=== PATIENT | female | born 1960 | race Caucasian/White ===

== ENCOUNTER 2017-09-02 00:20 | Emergency (ER) | payer SELFPAY ==
[2017-09-02 00:58] LABS: #Basophils 0.2 thou/uL (0.0-0.2); #Eosinphils 0.8 thou/uL (0.0-0.7); #Monocytes 0.6 thou/uL (0.11-0.59); #Neutrophils 5.5 thou/uL (1.40-6.50); %Basophils 2.6 % (0.0-1.0); %Eosinophils 8.6 % (0.0-10.0); %Lymphocytes 21.7 % (21.0-51.0); %Monocytes 6.1 % (0.0-10.0); Hemoglobin 13.9 g/dL (12.0-16.0); Mean Corpuscular Hemoglobin 25.7 pg (27.0-31.0); Mean Corpuscular Volume 80.6 fl (81.0-99.0); Mean Platelet Volume 6.2 fL (7.4-10.4); Platelet Count 269 thou/uL (130-400); RBC Distribution Width 12.8 % (11.5-14.5); Red Blood Cell (RBC) Count 5.41 mill/uL (4.20-5.40); White Blood Cell (WBC) Count 9.1 thou/uL (4.8-10.8)
[2017-09-02 01:09] LABS: ALT (SGPT) 21 U/L (8-55); AST (SGOT) 24 U/L (5-34); Alkaline Phosphatase 95 U/L (40-150); Anion Gap 13 mmol/L (10-20); Bilirubin, Total 0.3 mg/dL (0.2-1.2); Calc. Creatinine Clearance 0 mL/min (70-130); Calcium 9.5 mg/dL (7.8-10.44); Carbon Dioxide 25 mmol/L (22-29); Chloride 106 mmol/L (98-107); Estimated GFR-MDRD 65; Globulin 3.5 g/dL (2.4-3.5); Glucose 115 mg/dL (70-105); Potassium 4.4 mmol/L (3.5-5.1); Protein, Total 7.5 g/dL (6.0-8.3); Sodium 140 mmol/L (136-145)
[2017-09-02 01:19] LABS: BUN (Urea Nitrogen) 15 mg/dL (9.8-20.1)
--- NOTE | 2017-09-02 08:04 | CT ---
PRELIMINARY REPORT/[facility]/EMERGENCY AFTER HOURS PROCEDURE: EXAM: CT Chest With Intravenous Contrast CLINICAL HISTORY: 56 years old, female; Pain and signs and symptoms; Mass, lump, or swelling; Luq; Abdominal pain; Loca lized; Left upper quadrant (luq); Cough; Symptoms not specified; Chest wall pain; Patient HX: Left lo wer chest/upper abd palpable mass for a month. Hs of hyst TECHNIQUE: Axial computed tomography images of the chest with intravenous contrast. All CT scans at this facilit y use one or more dose reduction techniques, viz.: automated exposure control; ma/kV adjustment per p atient size (including targeted exams where dose is matched to indication; i.e. head); or iterative reconstruction technique. Coronal reformatted images were created and reviewed. CONTRAST: 90 mL of administered intravenously. COMPARISON: No relevant prior studies available. FINDINGS: Lungs: Unremarkable. No mass. No consolidation. Pleural space: Unremarkable. No pneumothorax. No significant effusion. Heart: Unremarkable. No cardiomegaly. No significant pericardial effusion. Bones/joints: Unremarkable. No acute fracture. No dislocation. Soft tissues: Unremarkable. Vasculature: Unremarkable. No thoracic aortic aneurysm. Lymph nodes: Unremarkable. No enlarged lymph nodes. IMPRESSION: No definite acute process observed EXAM: CT Abdomen and Pelvis With Intravenous Contrast CLINICAL HISTORY: 56 years old, female; Pain and signs and symptoms; Mass, lump, or swelling; Luq; Abdominal pain; Loca lized; Left upper quadrant (luq); Cough; Symptoms not specified; Chest wall pain; Patient HX: Left lo wer chest/upper abd palpable mass for a month. Hs of hyst TECHNIQUE: Axial computed tomography images of the abdomen and pelvis with intravenous contrast. CONTRAST: 90 mL of administered intravenously. COMPARISON: No relevant prior studies available. FINDINGS: ABDOMEN: Liver: Tiny hypodensity in the inferior right lobe No mass. Gallbladder and bile ducts: Unremarkable. No calcified stones. No ductal dilation. Pancreas: Unremarkable. No mass. No ductal dilation. Spleen: Unremarkable. No splenomegaly. Adrenals: Unremarkable. No mass. Kidneys and ureters: Unremarkable. No solid mass. No hydronephrosis. Stomach and bowel: Moderate stool in the colon No obstruction. No mucosal thickening. Appendix: No findings to suggest acute appendicitis. PELVIS: Bladder: Unremarkable. No mass. Reproductive: Unremarkable as visualized. ABDOMEN and PELVIS: Intraperitoneal space: Unremarkable. No free air. No significant fluid collection. Bones/joints: No acute fracture. No dislocation. Soft tissues: Unremarkable. Vasculature: Unremarkable. No abdominal aortic aneurysm. Lymph nodes: Unremarkable. No enlarged lymph nodes. IMPRESSION: No definite mass identified Question constipation Thank you for allowing us to participate in the care of your patient. Dictated and Authenticated by: Naresh Carlton MD 09/02/2017 2:17 AM Central Time ([place] & [place]) FINAL REPORT CT CHEST WITH IV CONTRAST CT ABDOMEN WITH IV CONTRAST CT PELVIS WITH IV CONTRAST: I agree with the preliminary report given by Dr. Naresh Carlton of [facility]. POS: [facility]
[2017-09-02] MEDS ORDERED: Iopamidol 370 76% 100 ML VIAL ONE (09:00)
== END 2017-09-02 02:33 | disposition home or self-care (01) ==
LOC: SCSER 00:20
DX: R19.02 Left upper quadrant abdominal swelling, mass and lump (principal); J45.909 Unspecified asthma, uncomplicated
CPT/HCPCS: 71260; 74177; 80053; 85025

== ENCOUNTER 2018-04-14 17:53 | Emergency (ER) | payer SELFPAY ==
[2018-04-14] MEDS ORDERED: Ketorolac Tromethamine 30 MG/ML VIAL ONE (19:00)
== END 2018-04-14 19:31 | disposition home or self-care (01) ==
LOC: SCSER 17:53
DX: M25.562 Pain in left knee (principal); J45.909 Unspecified asthma, uncomplicated
CPT/HCPCS: 96372; J1885

== ENCOUNTER 2019-02-18 23:47 | Emergency (ER) | payer OTHER, SELFPAY ==
[2019-02-19 00:57] LABS: Bilirubin Small (Negative); Blood, Urine Moderate (Negative); Clarity Slightly Cloudy (Clear); Glucose, Urine (Dipstick) Negative (Negative); Leukocyte Negative (Negative); Nitrite Negative (Negative); Protein, Urine (Dipstick) Negative (Neg-Trace); Urobilinogen 0.2 mg/dL (0.2-1.0); pH, Urine 5.5 (5.0-9.0)
[2019-02-19 00:59] LABS: Specific Gravity, Urine 1.034 (1.002-1.036)
[2019-02-19 01:03] LABS: RBC/HPF 0-3 HPF (0-3); Squamous Epithelial 0-3 HPF (0-3)
[2019-02-19 01:04] LABS: Bacteria/HPF 1+ HPF (None Seen); Crystals/HPF 1+ AMORPH URATES HPF (Negative)
--- NOTE | 2019-02-19 07:40 | CT ---
PRELIMINARY REPORTS/[facility]/AFTER HOURS PROCEDURE EXAM: CT Abdomen and Pelvis Without Contrast EXAM DATE/TIME: 02/19/2019 1:14 AM CLINICAL HISTORY: 58 years old, female; Other: Right lower lumbar region; Patient HX: Hematuria, right lower lumbar pain after lifting heavy feed bags yesterday. Hs of partial hyst with right ovary remaining TECHNIQUE: Imaging protocol: Axial computed tomography images of the abdomen and pelvis without contrast. Coronal and sagittal reformatted images were created and reviewed. Radiation optimization: All CT scans at this facility use at least one of these dose optimization techniques: automated exposure control; mA and/or kV adjustment per patient size (includes targeted exams where dose is matched to clinical indication); or iterative reconstruction. COMPARISON: No relevant prior studies available. FINDINGS: Lungs: No consolidations in the lung bases. Mediastinum: Small hiatal hernia. Liver: No liver masses. Gallbladder and bile ducts: Normal appearance of the gallbladder. No ductal dilation. Pancreas: No pancreatic mass or ductal dilation. Spleen: No splenic masses. Adrenals: No adrenal nodules. Kidneys and ureters: No enhancing mass or hydronephrosis. Stomach and bowel: No evidence of obstruction or bowel wall thickening. Colonic diverticulosis without evidence of acute diverticulitis. Appendix: Normal appendix. Intraperitoneal space: No free air or free fluid. Vasculature: No abdominal aortic aneurysm. Lymph nodes: No lymphadenopathy. Bladder: Normal. Reproductive: The uterus is not visualized. No adnexal masses. Bones/joints: There are 5 lumbar-type vertebral bodies with transitional anatomy at S1. Multilevel degenerative change of the lumbar spine. Soft tissues: Tiny fat containing umbilical hernia. IMPRESSION: 1. No acute findings in the abdomen or pelvis. 2. No nephroureterolithiasis or hydronephrosis. Thank you for allowing us to participate in the care of your patient. Dictated and Authenticated by: Berna García MD 02/19/2019 2:17 AM Central Time ([place] & [place]) FINAL REPORT EMERGENT AFTER HOURS CT ABDOMEN AND PELVIS: PROVIDED CLINICAL HISTORY: Low back pain and hematuria. COMPARISON: 09/02/2017 FINDINGS/IMPRESSION: Agree with the preliminary interpretation given by Jayashree. Transcribed Date/Time: 02/19/2019 8:32 AM
== END 2019-02-19 02:50 | disposition home or self-care (01) ==
LOC: SCSER 23:47
DX: S39.012A Strain of muscle, fascia and tendon of lower back, initial encounter (principal); R31.9 Hematuria, unspecified; J45.909 Unspecified asthma, uncomplicated; Z79.899 Other long term (current) drug therapy; X50.1XXA Overexertion from prolonged static or awkward postures, initial encounter
CPT/HCPCS: 74176; 81003; 81015; 87086

== ENCOUNTER 2019-03-01 11:28 | Emergency (ER) | payer OTHER ==
[2019-03-01] MEDS ORDERED: Dexamethasone 10 MG/ML VIAL ONE (12:10)
== END 2019-03-01 12:16 | disposition home or self-care (01) ==
LOC: SCSER 11:28
DX: M54.5 Low back pain (principal); J45.909 Unspecified asthma, uncomplicated; Z79.899 Other long term (current) drug therapy
CPT/HCPCS: 96372; 99283; J1100

== ENCOUNTER 2019-03-03 19:49 | Emergency (ER) | payer OTHER ==
[2019-03-03 20:19] LABS: #Lymphocytes 0.8 thou/uL (1.20-3.40); #Monocytes 0.2 thou/uL (0.11-0.59); #Neutrophils 4.9 thou/uL (1.40-6.50); %Lymphocytes 12.9 % (21.0-51.0); %Monocytes 2.8 % (0.0-10.0); %Neutrophils 84.2 % (42.0-75.0); Hemoglobin 14.9 g/dL (12.0-16.0); Mean Corpuscular HGB CONC 31.9 g/dL (32.0-36.0); Mean Corpuscular Hemoglobin 26.4 pg (27.0-31.0); Mean Corpuscular Volume 82.9 fL (78.0-98.0); Platelet Count 318 thou/uL (130-400); RBC Distribution Width 12.9 % (11.5-14.5); Red Blood Cell (RBC) Count 5.64 mill/uL (4.20-5.40); White Blood Cell (WBC) Count 5.9 thou/uL (4.8-10.8)
[2019-03-03 20:38] LABS: ALT (SGPT) 16 U/L (8-55); AST (SGOT) 14 U/L (5-34); Albumin 4.3 g/dL (3.5-5.0); Alkaline Phosphatase 90 U/L (40-150); Anion Gap 13 mmol/L (10-20); BUN (Urea Nitrogen) 17 mg/dL (9.8-20.1); Bilirubin, Total 0.3 mg/dL (0.2-1.2); Calc. Creatinine Clearance 0 mL/min (70-130); Calcium 9.5 mg/dL (7.8-10.44); Carbon Dioxide 22 mmol/L (22-29); Chloride 107 mmol/L (98-107); Estimated GFR-MDRD 44; Globulin 3.2 g/dL (2.4-3.5); Glucose 131 mg/dL (70-105); Lipase 23 U/L (8-78); Potassium 4.2 mmol/L (3.5-5.1); Protein, Total 7.5 g/dL (6.0-8.3); Sodium 138 mmol/L (136-145)
[2019-03-03 20:39] LABS: Bilirubin Negative (Negative); Blood, Urine 2+ (Negative); Clarity Clear (Clear); Glucose, Urine (Dipstick) Normal (Negative); Leukocyte 25 Leu/uL (Negative); Nitrite Negative (Negative); Protein, Urine (Dipstick) 20 mg/dL (Neg-Trace); RBC/HPF 21-50 HPF (0-3)
[2019-03-03 20:40] LABS: Pregnancy Test - Urine (BHCG) Negative (Negative); Pregu Control Background? CLEAR/WHITE (CLR/WHITE); Pregu Control Bar Appear? YES (CONTROL BAR); Specific Gravity 1.031 (1.002-1.036)
[2019-03-03 20:47] LABS: Bacteria/HPF Rare-Few HPF (None Seen); Yeast-Budding None Seen HPF (None Seen)
--- NOTE | 2019-03-03 23:12 | RAD ---
Exam: One view Pace for MRI clearance FINDINGS: No radiopaque foreign bodies projecting in either orbit. Symmetric aeration of sinuses. IMPRESSION: No radiopaque foreign body Transcribed Date/Time: 03/03/2019 11:13 PM
--- NOTE | 2019-03-04 00:19 | MRI ---
MRI lumbar spine noncontrast: HISTORY: Chronic low back pain, worsening after a lifting injury and fall, month ago. Right leg radiculopathy. No bowel movement in 5 days COMPARISON: None FINDINGS: Appropriate T1 marrow signal intensity lumbar vertebra. Lumbar spine vertebral body height is maintai alexander. No fracture. Type I and type II Modic changes at the L4-L5 disc space. 4.1 mm of anterolisthesis of L4 3 upon L4. Appropriate signal intensity in the visualized solid organs. Symmetric signal intensity of the parasp inal muscles Conus medullaris terminates at the upper aspect of L1 No significant STIR hyperintensity to suggest vertebral body edema or ligamentous injury. T12-L1:Adequate disc hydration. No significant central canal stenosis. Bilaterally, neural foramina a re patent. L1-L2:Adequate disc hydration. No significant central canal stenosis. Bilaterally, neural foramina ar e patent. L2-L3:Adequate disc hydration. Mild loss of disc space height. Generalized disc bulge, ligament flavu m thickening and facet hypertrophy result in mild to moderate central canal stenosis. Right neural foramen is mildly narrowed. Left neural foramen is patent L3-L4:Desiccation with mild loss of disc space height. Generalized disc bulge, ligamentum flavum thic kening and facet hypertrophy result in moderate central canal stenosis. Mild right neural foraminal narrowing. Left neural foramen is patent. L4-L5:Desiccation with mild to moderate loss of disc space height. Generalized disc bulge, ligament f lavum thickening and facet hypertrophy result in mild central canal stenosis. Narrowing of bilateral subarticular zones (left greater than right). Mass effect without obscuration the traversin g right L5 nerve root. Partial obscuration the traversing left L5 nerve root. Mild right neural foraminal narrowing. Mild to moderate left neural foraminal narrowing. L5-S1:Adequate hydration. No significant central canal stenosis or neural foraminal narrowing. Incidental bilateral peroneal sleeve cysts at S2 IMPRESSION: 1. No fracture 2. Degenerative changes of the lumbar spine as detailed above. Moderate canal stenosis at L3-L4. 3. Narrowing of subarticular zones at L4-L5 with partial obscuration traversing left L5 nerve root
[2019-03-04] MEDS ORDERED: Ketorolac Tromethamine 30 MG/ML VIAL ONE (00:27)
[2019-03-04] MEDS ORDERED: Cyclobenzaprine 10 MG TAB ONE (01:12)
== END 2019-03-04 01:35 | disposition home or self-care (01) ==
LOC: ERS 19:49
DX: M51.26 Other intervertebral disc displacement, lumbar region (principal)
CPT/HCPCS: 36415; 70210; 72148; 80053; 81003; 81015; 81025; 83690; 85025; 96374; J1885

== ENCOUNTER 2019-03-09 10:12 | Outpatient (CLI) | payer OTHER ==
--- NOTE | 2019-03-09 12:36 | RAD ---
CERVICAL SPINE FOUR VIEWS: INDICATIONS: Cervical disk disease. Neck pain. FINDINGS: Degenerative changes of the mid cervical spine are noted. Loss of disk space is seen at the C4-C5, C 5-C6, and C6-C7 levels, with anterior osteophytes. Mild anterior wedging of the C5 vertebra. Office Services Clerk ior spondylosis at C4-C5 and at C5-C6 with slight posterolisthesis at C5-C6. IMPRESSION: Moderate degenerative changes of the mid and lower cervical spine, from C4 through C7. POS: [facility]
== END 2019-03-09 10:13 | disposition home or self-care (01) ==
LOC: TBSIIMAG 10:12
PROVIDERS: ATTEND Neurological Surgery
DX: M54.5 Low back pain (principal); M47.812 Spondylosis without myelopathy or radiculopathy, cervical region
CPT/HCPCS: 72040